=== PATIENT | female | born 1985 | race Two or more races ===

== ENCOUNTER → 2024-11-16 | Emergency (ER) | payer OTHER ==
[~2024-11-16] VITALS: Ht 157.5 cm; Wt 49.9 kg
[~2024-11-16] MED LIST: CEFTRIAXONE SODIUM 1,000 MG VIAL IV STA; CEFTRIAXONE SODIUM 1,000 MG VIAL ONE; KETOROLAC TROMETHAMINE 60 MG VIAL IM ONE; KETOROLAC TROMETHAMINE 60 MG VIAL IM STA; LIDOCAINE HCL 1% 10ML VIAL ONE; PRENATAL CAPSU1 EACH
[2024-11-16 09:32] VITALS: BP 101/68; O2SAT 98
== END | disposition home or self-care (01) ==
LOC: ER 09:16
DX: N75.8 Other diseases of Bartholin's gland (principal); Z88.2 Allergy status to sulfonamides